=== PATIENT | female | born 1950 | race Caucasian/White ===

== ENCOUNTER 2023-01-14 08:31 | Emergency (ER) | payer MEDICARE ==
[~2023-01-14] VITALS: Ht 157.5 cm; Wt 91.0 kg
[2023-01-14 16:14] VITALS: BP 135/55
== END 2023-01-14 16:14 | disposition home or self-care (01) ==
LOC: ED 08:31
DX: U07.1 COVID-19 (principal); R09.89 Other specified symptoms and signs involving the circulatory and respiratory systems; J02.9 Acute pharyngitis, unspecified; R09.81 Nasal congestion; I10 Essential (primary) hypertension